=== PATIENT | female | born 1955 | race Caucasian/White ===

== ENCOUNTER 2020-03-07 17:23 | Emergency (ER) | payer BC | END 2020-03-07 17:43 | disposition home or self-care (01) | LOC: JVIRT 17:23 | DX: Z03.818 Encounter for observation for suspected exposure to other biological agents ruled out (principal) | CPT/HCPCS: C9803; Q3014-GT; U0003 ==

== ENCOUNTER 2020-06-27 05:36 | Day surgery (SDC) | payer BC ==
[2020-06-24 15:09] VITALS: BMI 23.6
[2020-06-27 08:42] VITALS: TEMP 97.7
[2020-06-27 09:43] VITALS: BP 123/82; PULSE 90
== END 2020-06-27 09:30 | disposition home or self-care (01) ==
LOC: JASU-ENDO 05:36
PROVIDERS: ATTEND Internal Medicine Gastroenterology
PROC: 0DJD8ZZ Inspection of Lower Intestinal Tract, Via Natural or Artificial Opening Endoscopic (ICD-10-PCS; principal; 2020-06-27 08:00)
DX: Z12.11 Encounter for screening for malignant neoplasm of colon (principal); K57.30 Diverticulosis of large intestine without perforation or abscess without bleeding; Z83.71 Family history of colonic polyps; Z88.0 Allergy status to penicillin

== ENCOUNTER 2022-01-11 15:43 | Observation (INO) | payer BC ==
[2022-01-11 16:28] LABS: HEMATOCRIT 40.4 % (32.4-45.2); HEMOGLOBIN 13.8 G/dL (10.7-15.3); MCH 31.1 pg (25.7-33.7); MCHC 34.1 g/dl (32.0-36.0); MEAN CELL VOLUME 91.1 fl (80-96); MEAN PLT VOLUME 8.5 fl (7.5-11.1); PLATELET COUNT 281.5 10^3/uL (134-434); RBC 4.43 10^6/uL (3.60-5.2); RDW 14.2 % (11.6-15.6); WHITE BLOOD COUNT 11.5 10^3/uL (4.0-10.8)
[2022-01-11 16:39] LABS: ALBUMIN 4.2 g/dl (3.4-5.0); BILIRUBIN,TOTAL 0.8 mg/dl (0.2-1); CALCIUM 9.5 mg/dl (8.5-10); CREATININE 0.9 mg/dl (0.55-1.3); TOT PROT 7.2 g/dl (6.4-8.2)
[2022-01-11 17:07] LABS: PLATELET ESTIMATE ADEQUATE
[2022-01-11 17:33] LABS: EPITHELIAL CELLS RARE /hpf
[2022-01-11] MEDS ORDERED: SODIUM CHLORIDE 1,000 ML IV STA (17:42)
[2022-01-11] MEDS ORDERED: metoPROLOL SUCCINATE 25 MG TAB.SR.24H (FP) PO ONE ×2 (19:53→20:01)
[2022-01-11] MEDS ORDERED: CIPROFLOXACIN 400 MG/D5W 400 MG/200 ML IVPB IVPB ONE (20:47)
[2022-01-11 22:36] VITALS: BMI 24.5
[2022-01-11] MEDS ORDERED: ATORVASTATIN CA 20 MG TABLET (FP) PO ONE (23:07)
[2022-01-12 07:22] LABS: BASO % 0.7 % (0-2.0); EOS % 2.1 % (0-4.5); HEMATOCRIT 36.5 % (32.4-45.2); LYMPH % 34.6 % (8-40); MCH 29.7 pg (25.7-33.7); MCHC 32.9 g/dl (32.0-36.0); MEAN CELL VOLUME 90.2 fl (80-96); MEAN PLT VOLUME 8.6 fl (7.5-11.1); MONO % 6.5 % (3.8-10.2); NEUT % 56.1 % (42.8-82.8); PLATELET COUNT 271 10^3/uL (134-434); RBC 4.05 M/mm3 (3.60-5.2); RDW 13.3 % (11.6-15.6); WHITE BLOOD COUNT 6.7 K/mm3 (4.0-10.0)
[2022-01-12 07:23] LABS: ALBUMIN 0.4 g/dl (3.4-5.0); CALCIUM 8.9 mg/dL (8.5-10.1)
[2022-01-12 07:24] LABS: BLOOD UREA NITROGEN 14.8 mg/dL (7-18); MAGNESIUM 2.2 mg/dL (1.8-2.4)
[2022-01-12 07:26] LABS: CREATININE 0.7 mg/dL (0.55-1.3)
[2022-01-12 07:28] LABS: BILIRUBIN,TOTAL 0.5 mg/dL (0.2-1); TOT PROT 6.6 g/dl (6.4-8.2)
[2022-01-12 08:38] LABS: PHENCYCLIDINE,URINE NEGATIVE (NEGATIVE)
[2022-01-12 08:42] LABS: COCAINE, UR NEGATIVE (NEGATIVE); METHADONE, UR NEGATIVE (NEGATIVE); OPIATES, URI NEGATIVE (NEGATIVE); URINE AMPHETAMINES NEGATIVE (NEGATIVE); URINE BARBITURATES NEGATIVE (NEGATIVE); URINE BENZODIAZEPINES NEGATIVE (NEGATIVE)
[2022-01-12] MEDS ORDERED: metoPROLOL SUCCINATE 25 MG TAB.SR.24H (FP) PO SCH (10:00)
[2022-01-12 14:03] VITALS: BP 108/63; PULSE 87; RESP 17; TEMP 98.3
[2022-01-12] MEDS ORDERED: ATORVASTATIN CA 20 MG TABLET (FP) PO SCH (22:00)
== END 2022-01-12 17:22 | disposition home or self-care (01) ==
LOC: FER 15:43 → FM/S 20:18
PROVIDERS: ADMIT Internal Medicine
PROC: 3E0337Z Introduction of Electrolytic and Water Balance Substance into Peripheral Vein, Percutaneous Approach (ICD-10-PCS; principal; 2022-01-11)
DX: I47.1 Supraventricular tachycardia (principal); R00.2 Palpitations; E78.5 Hyperlipidemia, unspecified; Z88.0 Allergy status to penicillin; Z90.49 Acquired absence of other specified parts of digestive tract; Z87.891 Personal history of nicotine dependence; Z20.822 Contact with and (suspected) exposure to COVID-19
CPT/HCPCS: 36415; 71045-TC-FY; 80053; 80061; 80307; 81003; 81015; 83735; 84439; 84443; 84484; 85025; 85027; 93005; 93306-TC; 96360; 99285-25; C9803-CS; G0378; U0003; U0005

== ENCOUNTER 2024-02-24 11:45 | Emergency (ER) | payer OTHER ==
[2024-02-24 11:50] VITALS: TEMP 97.8; BMI 24.3
[2024-02-24 13:35] LABS: HEMATOCRIT 36.6 % (32.4-45.2); HEMOGLOBIN 11.9 G/dL (10.7-15.3); MCH 30.2 pg (25.7-33.7); MCHC 32.5 g/dl (32.0-36.0); MEAN CELL VOLUME 93.1 fl (80-96); PLATELET COUNT 240.4 10^3/uL (134-434); RBC 3.93 10^6/uL (3.60-5.2); RDW 14.4 % (11.6-15.6); WHITE BLOOD COUNT 7.4 10^3/uL (4.0-10.8)
[2024-02-24 13:56] LABS: ANION GAP 11 mmol/L (4-13); CALCIUM 9.5 mg/dl (8.5-10.1); CHLORIDE 100 mmol/L (98-107); CO2 24 mmol/L (21-32); CREATININE 0.8 mg/dl (0.6-1.3); GLUCOSE,RANDOM 107 mg/dl (74-106); POTASSIUM 4.1 mmol/L (3.5-5.1); SODIUM 135 mmol/L (136-145)
[2024-02-24 13:57] LABS: ALBUMIN 4.3 g/dl (3.4-5.0); ALK PHOS 87 U/L (45-117); BILIRUBIN,TOTAL 0.5 mg/dl (0.2-1); SGOT/AST 15 U/L (15-37); SGPT/ALT 17 U/L (7-52); TOT PROT 6.6 g/dl (6.4-8.2)
[2024-02-24 14:16] LABS: PLATELET ESTIMATE ADEQUATE
[2024-02-24 18:08] VITALS: BP 120/77; PULSE 94; RESP 16
== END 2024-02-24 18:10 | disposition home or self-care (01) ==
LOC: FER 11:45
DX: R00.2 Palpitations (principal); R42 Dizziness and giddiness; R00.0 Tachycardia, unspecified
CPT/HCPCS: 36415; 80053; 84484; 85027; 93005; 99284-25

== ENCOUNTER 2024-07-15 06:35 | Day surgery (SDC) | payer OTHER ==
[2024-07-14 10:43] VITALS: BMI 23.8
[2024-07-15 08:42] VITALS: TEMP 98
[2024-07-15 08:43] VITALS: RESP 18
[2024-07-15 10:46] VITALS: BP 108/72; PULSE 86
== END 2024-07-15 09:38 | disposition home or self-care (01) ==
LOC: JASU-ENDO 06:35
PROVIDERS: ATTEND Internal Medicine Gastroenterology
PROC: 0DB78ZX Excision of Stomach, Pylorus, Via Natural or Artificial Opening Endoscopic, Diagnostic (ICD-10-PCS; 2024-07-15)
PROC: 0DB68ZX Excision of Stomach, Via Natural or Artificial Opening Endoscopic, Diagnostic (ICD-10-PCS; 2024-07-15)
PROC: 0DB98ZX Excision of Duodenum, Via Natural or Artificial Opening Endoscopic, Diagnostic (ICD-10-PCS; principal; 2024-07-15 08:00)
DX: K21.00 Gastro-esophageal reflux disease with esophagitis, without bleeding (principal); K44.9 Diaphragmatic hernia without obstruction or gangrene; K31.7 Polyp of stomach and duodenum
CPT/HCPCS: 88305-TC; 88342-TC